=== PATIENT | female | born 1960 | race Caucasian/White ===

== ENCOUNTER → 2016-12-05 | Outpatient (CLI) | payer BC, OTHER ==
--- NOTE | 2016-12-05 11:42 | REP ---
Clinical: Lung screening. History smoking. Technique: Axial low-dose images from the thoracic inlet to the upper abdomen using lung screening technique. Findings: A 2 mm density is identified in the right apex and within the periphery of the basilar segment right upper lobe as well as a 6 mm non solid density in the subpleural anterior left lower lobe. While these findings likely represent chronic changes, high risk factors lower threshold for possible active disease. The remainder of lung vasquez are well-aerated and clear. Tracheobronchial tree is patent. No pleural effusion/reaction or pneumothorax. Mediastinum is grossly normal. Impression: Lung-RADS category 3. Findings include a 6 mm non solid density in the subpleural left lower lobe likely representing benign finding. Recommendations suggest 6-month low-dose CT follow-up examination. Signed by Josh Hooks MD 12/05/2016 11:34 A
== END ==
LOC: M RAD 10:43
PROVIDERS: ATTEND Internal Medicine Pulmonary Disease
DX: Z72.0 Tobacco use (principal)

== ENCOUNTER → 2017-07-05 | Outpatient (CLI) | payer BC, OTHER ==
--- NOTE | 2017-07-05 08:32 | REP ---
CT of the chest without IV contrast: Comparison is the low-dose screening chest CT of 12/05/2016. On the prior study there was a 6 ml lung nodule in the lateral deep sulcus of the left lower lobe. This nodule is no longer present suggesting with transient atelectasis on the prior study. On the study today there is a new nodule, not present previously in the superior segment of the right lower lobe along the major fissure on image 49 measuring 4 mm. There are are no other lung nodules. There is no mediastinal or axillary adenopathy. The study is insensitive for hilar adenopathy in the absence of IV contrast. The thoracic aorta is unremarkable. Cardiac size is normal. There is a 2.9 cm left adrenal nodule of low density having a CT density of -10 Hounsfield units, compatible with adrenal adenoma. Impression: Findings are compatible with a category [address] The probability malignancy is less than 1%. Recommendation is for continued annual low-dose chest CT screening. There is a 2.9 cm left adrenal nodule of low density compatible with adrenal adenoma. Signed by Indra Hernandez MD 07/05/2017 08:22 A
== END ==
LOC: M RAD 07:22
PROVIDERS: ATTEND Internal Medicine Pulmonary Disease
DX: R91.8 Other nonspecific abnormal finding of lung field (principal); Z87.891 Personal history of nicotine dependence

== ENCOUNTER → 2018-06-23 | Outpatient (CLI) | payer BC, OTHER | LOC: M RAD 09:27 | DX: R91.8 Other nonspecific abnormal finding of lung field (principal) | CPT/HCPCS: 71250 ==

== ENCOUNTER → 2019-07-20 | Outpatient (CLI) | payer BC, OTHER ==
--- NOTE | 2019-07-20 11:44 | REP ---
Low-dose lung screening CT of the chest: Comparisons are chest CT without IV contrast dated 06/23/2018, chest CT without IV contrast dated 07/05/2017, and low-dose lung screening chest CT dated 12/05/2016. There is a 4 mm lung nodule in the right lung on image 45, unchanged from all prior studies, therefore likely benign. There is a 6 ml lung nodule in the deep lateral sulcus of the left lower lobe on image 79, unchanged from 2016, likely a parenchymal scar. There is minor fibro linear scarring in the left lower lobe. There are no other lung masses or nodules. There are no infiltrates or pleural effusions. Impression: There are stable lung nodules as described. Category II low-dose lung screening chest CT. Probability of malignancy is less than 1%. Depending on risk factors consider continued annual follow-up low-dose lung screening CT. Electronically Signed by Indra Hernandez MD 07/20/2019 11:35 A
== END ==
LOC: M RAD 09:13
PROVIDERS: ATTEND Internal Medicine Pulmonary Disease
DX: Z12.2 Encounter for screening for malignant neoplasm of respiratory organs (principal); Z87.891 Personal history of nicotine dependence; R91.8 Other nonspecific abnormal finding of lung field

== ENCOUNTER → 2020-10-05 | Outpatient (CLI) | payer BC, OTHER ==
--- NOTE | 2020-10-07 11:22 | REP ---
INDICATION: NICOTINE DEPENDENCE COMPARISON: 07/20/2019 TECHNIQUE: Axial noncontrast images from the thoracic inlet to the upper abdomen using low-dose lung screening technique (LDCT). FINDINGS: The lung vasquez demonstrate very small scattered nodules measuring up to 3 mm along with minimal bibasilar fibroatelectatic changes and left pleural thickening. No further nodule or mass. Tracheobronchial tree is patent. IMPRESSION: Lung-RADS category 2. Management recommendations include annual low-dose CT surveillance. <Electronically signed by Josh Hooks > 10/07/20 1117
== END ==
LOC: M RAD 14:31
PROVIDERS: ATTEND Internal Medicine Pulmonary Disease
DX: Z12.2 Encounter for screening for malignant neoplasm of respiratory organs (principal); Z87.891 Personal history of nicotine dependence

== ENCOUNTER → 2021-10-18 | Outpatient (CLI) | payer OTHER | LOC: M RAD 10:42 | PROVIDERS: ATTEND Internal Medicine Pulmonary Disease | DX: Z87.891 Personal history of nicotine dependence (principal); J44.9 Chronic obstructive pulmonary disease, unspecified ==

== ENCOUNTER → 2023-05-12 | Outpatient (CLI) | payer OTHER | LOC: M RAD 08:30 | PROVIDERS: ATTEND Internal Medicine Pulmonary Disease | DX: Z87.891 Personal history of nicotine dependence (principal) ==

== ENCOUNTER 2023-09-07 11:11 | Observation (INO) | payer OTHER ==
[~2023-09-07] VITALS: Ht 149.9 cm; Wt 92.2 kg
[2023-09-07] MEDS ORDERED: ANOR1AER PO (11:30)
[2023-09-07] MEDS ORDERED: OXYB5TAB11 PO (11:30)
[2023-09-07] MEDS ORDERED: LEVO125T4 PO (11:30)
[2023-09-07] MEDS ORDERED: TAMS1CAP17 PO (11:30)
[2023-09-07] MEDS ORDERED: PROA1AER2 PO (11:30)
[2023-09-07] MEDS ORDERED: SIMV40TA20 PO (11:30)
[2023-09-07] MEDS ORDERED: METF500T13 PO (11:30)
[2023-09-07] MEDS ORDERED: ISOVUE-370 76% 100ML VIAL As Ordered ONE (12:39)
[2023-09-07 12:52] LABS: BASO % 0.6 % (0.0-1.0); EOS # 0.1 10^3/uL (0.0-0.5); EOS % 1.1 % (0.0-3.0); HEMATOCRIT 46.2 % (36.0-47.0); HEMOGLOBIN 14.7 g/dl (12.0-15.5); LYMPH # 1.3 10^3/uL (1.5-5.0); LYMPH % 20.7 % (24.0-44.0); MEAN CORPUSCULAR HEMOGLOBIN 27.7 pg (27.0-33.0); MEAN CORPUSCULAR HGB CONC 31.8 g/dl (32.0-36.5); MONO # 0.3 10^3/uL (0.0-0.8); MONO % 5.5 % (2.0-8.0); NEUTROPHILS # 4.4 10^3/uL (1.5-8.5); NEUTROPHILS % 71.6 % (36.0-66.0); PLATELET COUNT, AUTOMATED 280 10^3/uL (150-450); RED BLOOD COUNT 5.31 10^6/uL (4.00-5.40); WHITE BLOOD COUNT 6.2 10^3/uL (4.0-10.0)
[2023-09-07 13:15] LABS: INR 1.09; PROTHROMBIN TIME 13.7 SECONDS (12.5-14.5)
[2023-09-07 13:22] LABS: CK-MB VALUE MASS < 1.0 NG/ML (<3.6); CPK CREATINE PHOSPHOKINASE 80 U/L (34-145); MB/CK RELATIVE INDEX 1.25 (< OR =4)
[2023-09-07 13:26] LABS: RSV AMPLIFICATION NEGATIVE (NEGATIVE)
[2023-09-07] MEDS ORDERED: ASPIRIN 325 MG TAB PO ONE (13:55)
[2023-09-07 14:16] LABS: CK-MB VALUE MASS < 1.0 NG/ML (<3.6)
[2023-09-07 14:18] LABS: CPK CREATINE PHOSPHOKINASE 69 U/L (34-145); MB/CK RELATIVE INDEX 1.44 (< OR =4)
[2023-09-07] MEDS ORDERED: MED REC IN PROGRESS XX SCH (15:15)
[2023-09-07] MEDS ORDERED: ACETAMINOPHEN TAB 650MG DOSE (2X325MG) PO PRN (16:00)
[2023-09-07] MEDS ORDERED: MOM 30ML SUSPENSION UDC PO PRN (16:00)
[2023-09-07] MEDS ORDERED: COLA100C5 PO (18:06)
[2023-09-07] MEDS ORDERED: VITMTA PO (18:07)
[2023-09-07] MEDS ORDERED: HOME MED LIST COMPLETE! XX SCH (18:10)
[2023-09-07 18:12] LABS: HEMOGLOBIN A1c 5.8 % (4.0-6.0)
[2023-09-07 18:20] LABS: CHOLESTEROL RISK RATIO 2.96 (<5); HDL CHOLESTEROL 50.9 MG/DL (>40); LDL CHOLESTEROL 82.5 MG/DL (<100); NON-HDL-C 100.1 MG/DL
[2023-09-07] MEDS ORDERED: ALBUTEROL 90 MCG/ACT 8GM HFA INHALER INH PRN (18:20)
[2023-09-07 18:21] LABS: ALBUMIN 3.6 G/DL (3.2-5.2); ALKALINE PHOSPHATASE 101 U/L (46-116); ALT/SGPT 24 U/L (7.0-40); AST/SGOT 15 U/L (<34); BILIRUBIN,TOTAL 0.4 MG/DL (0.3-1.2); BLOOD UREA NITROGEN 11 MG/DL (9-23); CARBON DIOXIDE LEVEL 27 MMOL/L (20-31); CHLORIDE LEVEL 105 MMOL/L (98-107); CREATININE FOR GFR 0.42 MG/DL (0.55-1.30); GLOMERULAR FILTRATION RATE > 60.0 (>45); GLUCOSE, FASTING 86 MG/DL (74-106); POTASSIUM SERUM 3.9 MMOL/L (3.5-5.1); SODIUM LEVEL 142 MMOL/L (136-145); TOTAL PROTEIN 6.5 G/DL (5.7-8.2)
[2023-09-07] MEDS ORDERED: LORazepam 2 MG/ML 1ML VIAL IV ONE (18:45)
[2023-09-07] MEDS ORDERED: LORazepam 2 MG/ML 1ML VIAL IV PRN (18:45)
[2023-09-07 19:23] LABS: THYROID STIMULATING HORMONE 1.298 uIU/ML (0.55-4.78)
[2023-09-07] MEDS: FORMOTEROL FUMARATE 20 MCG/2 ML INHALATION SOLUTION (PERFOROMIST) INH SCH (20:31)
[2023-09-07] MEDS: HEPARIN SOD (PORCINE) 5000UNITS/ML 1ML VIAL/SYRINGE SC SCH (20:36)
[2023-09-07] MEDS: oxyBUTYnin 5 MG TAB PO SCH (20:36)
[2023-09-07] MEDS ORDERED: ATORVASTATIN 20 MG TAB PO SCH (21:00)
[2023-09-07 21:15] VITALS: BP 118/76; TEMP 97.8; O2SAT 93
[2023-09-08] VITALS: BP 122/70; TEMP 98.1; O2SAT 94
[2023-09-08 04:00] VITALS: BP 126/72; TEMP 97.8; O2SAT 96
[2023-09-08] MEDS ORDERED: LEVOTHYROXINE 125MCG TABLET (0.125MG) PO SCH (06:00)
[2023-09-08] MEDS: HEPARIN SOD (PORCINE) 5000UNITS/ML 1ML VIAL/SYRINGE SC SCH (06:00)
[2023-09-08] MEDS: FORMOTEROL FUMARATE 20 MCG/2 ML INHALATION SOLUTION (PERFOROMIST) INH SCH (07:27)
[2023-09-08 07:41] VITALS: BP 115/56; TEMP 97.6; O2SAT 93
[2023-09-08 07:52] LABS: BASO # 0.1 10^3/uL (0.0-0.2); BASO % 0.7 % (0.0-1.0); EOS # 0.2 10^3/uL (0.0-0.5); EOS % 2.2 % (0.0-3.0); HEMOGLOBIN 13.9 g/dl (12.0-15.5); LYMPH # 1.2 10^3/uL (1.5-5.0); MEAN CORPUSCULAR HGB CONC 32.3 g/dl (32.0-36.5); MEAN CORPUSCULAR VOLUME 86.5 fl (80.0-96.0); MONO # 0.4 10^3/uL (0.0-0.8); MONO % 6.3 % (2.0-8.0); NEUTROPHILS % 72.4 % (36.0-66.0); PLATELET COUNT, AUTOMATED 286 10^3/uL (150-450); RED BLOOD COUNT 4.97 10^6/uL (4.00-5.40); WHITE BLOOD COUNT 6.8 10^3/uL (4.0-10.0)
[2023-09-08] MEDS ORDERED: TIOTROPIUM INHALER/CAPSULE (SPIRIVA) INH SCH (08:00)
[2023-09-08] MEDS: oxyBUTYnin 5 MG TAB PO SCH (08:57)
[2023-09-08] MEDS ORDERED: TAMSULOSIN 0.4 MG CAP PO SCH (09:00)
[2023-09-08] MEDS ORDERED: ASPIRIN 81MG CHEW TABLET PO SCH (09:00)
[2023-09-08] MEDS ORDERED: DOCUSATE SODIUM 100MG CAPSULE PO SCH (09:00)
[2023-09-08] MEDS ORDERED: MULTIVITAMINS/MINERALS THERAP 1 TAB PO SCH (09:00)
[2023-09-08 09:28] LABS: BLOOD UREA NITROGEN 11 MG/DL (9-23); CALCIUM LEVEL 8.7 MG/DL (8.3-10.6); CARBON DIOXIDE LEVEL 29 MMOL/L (20-31); CHLORIDE LEVEL 106 MMOL/L (98-107); CREATININE FOR GFR 0.46 MG/DL (0.55-1.30); GLOMERULAR FILTRATION RATE > 60.0 (>45); GLUCOSE, FASTING 142 MG/DL (74-106); MAGNESIUM LEVEL 2.1 MG/DL (1.8-2.4); POTASSIUM SERUM 4.5 MMOL/L (3.5-5.1); SODIUM LEVEL 142 MMOL/L (136-145)
[2023-09-08] MEDS ORDERED: ISOVUE-370 76% 100ML VIAL As Ordered ONE (12:20)
[2023-09-08] MEDS ORDERED: ASPI81CH8 PO (13:34)
== END 2023-09-08 14:50 | disposition home or self-care (01) ==
LOC: M ED 11:11 → M ED INP 11:12 → M PCU 16:48
PROVIDERS: ADMIT Internal Medicine; ATTEND Internal Medicine
DX: R47.81 Slurred speech (principal); R20.0 Anesthesia of skin; R20.2 Paresthesia of skin; J98.11 Atelectasis; R91.1 Solitary pulmonary nodule; R73.03 Prediabetes; E78.5 Hyperlipidemia, unspecified; N32.81 Overactive bladder; I48.91 Unspecified atrial fibrillation; E03.9 Hypothyroidism, unspecified; G47.33 Obstructive sleep apnea (adult) (pediatric); K76.0 Fatty (change of) liver, not elsewhere classified; J42 Unspecified chronic bronchitis; M25.512 Pain in left shoulder; M54.2 Cervicalgia; R51.9 Headache, unspecified; R07.9 Chest pain, unspecified; R42 Dizziness and giddiness; I10 Essential (primary) hypertension; Z88.8 Allergy status to other drugs, medicaments and biological substances; Z88.2 Allergy status to sulfonamides; Z91.040 Latex allergy status; Z79.899 Other long term (current) drug therapy; Z79.890 Hormone replacement therapy; Z79.84 Long term (current) use of oral hypoglycemic drugs; Z87.891 Personal history of nicotine dependence; Z66 Do not resuscitate
CPT/HCPCS: 36415; 70450; 70496; 70498; 70551; 71045; 71275; 80047; 80048; 80053; 80061; 82550; 82553; 83036; 83735; 84443; 84484; 85025; 85610; 85730; 87631; 93005; 93041; 94640; 94760; 96372; 96374; 97161; 97165; 99285; J2060; J7606; Q9967

== ENCOUNTER → 2023-09-08 | Outpatient (CLI) | payer OTHER ==
[~2023-09-08] MED LIST: ANOR1AER PO; ASPI81CH8 PO; COLA100C5 PO; LEVO125T4 PO; METF500T13 PO; OXYB5TAB11 PO; PROA1AER2 PO; SIMV40TA20 PO; TAMS1CAP17 PO; VITMTA PO
== END ==
LOC: M EKG 14:57
PROVIDERS: ATTEND Internal Medicine
DX: I48.91 Unspecified atrial fibrillation (principal); R00.1 Bradycardia, unspecified

== ENCOUNTER → 2023-11-21 | Outpatient (CLI) | payer OTHER ==
[~2023-11-21] MED LIST changes: -OXYB5TAB11 PO; +OXYB5TAB14 PO
== END ==
LOC: M PLALAB 13:51
PROVIDERS: ATTEND Physician Assistant
DX: N20.0 Calculus of kidney (principal)

== ENCOUNTER → 2024-11-26 | Outpatient (CLI) | payer OTHER | LOC: M PLAIMG 14:20 | PROVIDERS: ATTEND Physician Assistant | DX: Z87.442 Personal history of urinary calculi (principal) ==